=== PATIENT | female | born 1945 | race Caucasian/White ===

== ENCOUNTER 2018-05-05 05:34 | Day surgery (SDC) | payer OTHER ==
[~2018-05-05] VITALS: Ht 154.9 cm; Wt 122.0 kg
--- NOTE | ~2018-05-05 | PATH ---
[facility] [place] [address] PATHOLOGY RPT PROCEDURE Name: TAURUS GONZALEZ Room #: [facility]..#: [id number] Admission: 05/05/18 Date of : 43 Discharge: 05/05/18 Report #: [id number] Path Case #: [id number] [facility] Accession Number: [id number] . 01 Material submitted: . PART A: LEFT MEDIAL CANTHUS LOWER LID-FS PART B: ADDITIONAL LATERAL MARGIN OF LEFT MEDIAL CANTHUUS/LOWER LID-FS PART C: ADDITIONAL INFERIOR MARGIN LEFT MEDIAL CANTHUS/LOWER LID-FS PART D: LEFT UPPER LID/BROW-FS . 02 Diagnosis: A. Skin, basal cell carcinoma left medial canthus lower lid, excision: - INVASIVE BASAL CELL CARCINOMA. - Deep margin free of malignancy. - TUMOR FOCALLY PRESENT AT INFERIOR / LATERAL MARGIN. - Superior and medial margins free of malignancy. . B. Skin, additional lateral margin of left medial canthus / lower lid, excision: - FOCAL BASAL CELL CARCINOMA PRESENT. . C. Skin, additional inferior margin left medial canthus / left lower lid, excision: - Negative for malignancy. . D. Skin, basal cell carcinoma left upper lid / brow, excision: - INVASIVE WELL-DIFFERENTIATED BASAL CELL CARCINOMA. - Margins of resection free of malignancy. - Perineural invasion present. - Deep margin less than 1 mm away from invasive carcinoma. . (IUV:mml; 05/06/18) [facility]/05/06/2018 . 02 Electronically signed: . Negrita Alvarado MD, Pathologist NPI- [id number] . 01 Gross description: . A. Specimen is received fresh from the OR labeled with the patient's name, and "basal cell carcinoma left medial canthus lower lid", consists of a triangular specimen oriented as superior, lateral, inferior and medial. The base of the triangular excision is the superior, lateral and inferior margin. The superior is assigned 12:00, the lateral is assigned 3:00, the inferior is assigned 6:00, and the medial is assigned 9:00. The specimen measures 2 cm at the base, 1.9 cm from inferior to medial, and 1.6 cm medial to superior. At this point, the specimen is serially [address] [address] PATHOLOGY RPT PROCEDURE Name: LISATAURUS RAE Room #: [facility].R.#: [id number] Admission: 05/05/18 Date of : 43 Discharge: 05/05/18 Report #: [id number] Path Case #: [id number] sectioned and entirely submitted for frozen section as FSA1; this is subsequently submitted for permanent sections as A1. . B. Specimen is received fresh from the OR labeled with the patient's name, and "additional lateral margin of lateral medial canthus/lower lid", consists of a tiny excision with a thin strip of skin measuring approximately 1 x 0.3 x 0.2 cm. The specimen is oriented as inferior and lateral. The inferior is tagged with blue ink and the lateral is tagged with black ink. The specimen is submitted en-face for frozen section as FSB1; this is subsequently submitted for permanent sections as B1. . C. Specimen is received fresh from the OR labeled with the patient's name, and "additional inferior margin of medial canthus/lower lid", consists of a thin strip of skin measuring 1.1 x 0.3 x 0.2 cm. The inferior is tagged with blue ink and the lateral is tagged with black ink. Specimen is submitted en-face for frozen section as FSC1, subsequently submitted for permanent sections as C1. . D. Specimen is received fresh from the OR labeled with the patient's name, and "basal cell carcinoma left upper lid/brow", consists of an ellipse of skin measuring 2.5 x 1.3 x 0.3 cm. There is a central ulcerated lesion measuring approximately 1 x 1 cm. The specimen is oriented by Dr. Chavez as lateral, inferior, medial and superior. These are assigned 12:00, 3:00, 6:00, and 9:00, respectively with the lateral margin being the 12:00 tip and the medial margin being the 6:00 tip. The 12:00 to 3:00 to 6:00 is inked black, the 6:00 to 9:00 is inked blue, and 9:00 to 12:00 is inked green. At this point, the specimen is serially sectioned and entirely submitted for frozen section as FSD1, subsequently submitted for permanent sections as D1. (IUV:aimee; 05/05/2018) . . FROZEN SECTION DIAGNOSES (Negrita Alvarado MD) . FSA1, left medial canthus lower lid, excision: - BASAL CELL CARCINOMA PRESENT AT INFERIOR/LATERAL MARGIN. . FSB1, additional lateral margin medial canthus, excision: - BASAL CELL CARCINOMA PRESENT AT INFERIOR MARGIN. . FSC1, additional inferior margin medial canthus, excision: - Negative for invasive carcinoma. . FSD1, left upper lid/brow, excision: - Margins negative for invasive carcinoma. . These findings are discussed with Dr. Harinder Chavez in OR-[address] [address] PATHOLOGY RPT PROCEDURE Name: TAURUS GONZALEZ Room #: [facility]#: [id number] Admission: 05/05/18 Date of : 43 Discharge: 05/05/18 Report #: [id number] Path Case #: [id number] [facility] [place] and a written report is placed in the patient's chart. (IUV:aimee; 05/05/2018) . Frozen sections performed at [facility], [address] [place] [address] , [place] [address]. /QMS . 02 Pathologist provided ICD-10: C44.1191, C44.1192 . 02 CPT . 773549, 011056, 228956, 401209, 288758, [id number], [id number], 144508 Specimen Comment: A courtesy copy of this report has been sent to Specimen Comment: [phone], . Specimen Comment: Report sent to / DR PEREZ Specimen Comment: A duplicate report has been generated due to demographic updates. Performed at: [address], [place], [place] [id number] MD Skip Benites MD Phone: [phone] Performed at: [address] [id number] MD Negrita Alvarado MD Phone: [phone]
--- NOTE | ~2018-05-05 | O ---
[facility] [address] [address] OPERATIVE REPORT Name: TAURUS GONZALEZ Room #: 150-3 [facility] M.R.#: [id number] Admission: 05/05/18 Attend Phys: Harinder Chavez MD Discharge: Date of : 43 Report #: [id number] THIS REPORT FOR: //name// CC: Jesús Hamlin DATE OF SERVICE: 05/05/2018 PREOPERATIVE DIAGNOSES: 1. Basal cell carcinoma of left medial canthus, left lower lid, medial left upper lid and glabella. 2. Basal cell carcinoma of left lateral upper lid, left brow and left infratemporal fossa. POSTOPERATIVE DIAGNOSES: 1. Basal cell carcinoma of left medial canthus, left lower lid, medial left upper lid and glabella. 2. Basal cell carcinoma of left lateral upper lid, left brow and left infratemporal fossa. PROCEDURES: 1. Excision of basal cell carcinoma of left medial canthus, left lower lid, medial left upper lid and glabella with frozen section, control of margins and myocutaneous flap repair defect. 2. Excision of basal cell carcinoma of lateral left upper lid, left brow and left infratemporal fossa with musculocutaneous flap repair of defect based on the temporalis muscle. SURGEON: Harinder Chavez MD. ANESTHESIA: MAC. COMPLICATIONS: None. INDICATIONS FOR SURGERY: This 72-year-old woman presents with two separate rapidly enlarging basal cell carcinomas that are biopsy proven. One is in her left medial canthal area that extends up on to the glabella in her medial left upper lid in addition to extending on to her left lower lid, cheek and nasojugal fold. She has a larger lesion that extends from the lateral aspect of the brow into the upper lid and into the infratemporal fossa. She presents for excision of both of these lesions with frozen section, control of margins and repair of the ensuing defect. Informed consent was obtained to include but not limited to the potential risk for loss of vision, bleeding, infection, failure to improve the problem, the potential need for further surgery or treatment, especially [address] [address] OPERATIVE REPORT Name: TAURUS GONZALEZ Room #: 150-3 [facility]..#: [id number] Admission: 05/05/18 Attend Phys: Harinder Chavez MD Discharge: Date of : 43 Report #: [id number] considering her immunocompromised status. DESCRIPTION OF PROCEDURE: The patient was taken to the operating room where 2% Xylocaine with epinephrine mixed with equal parts of 0.75% Marcaine with Wydase was administered transcutaneously to the medial left upper lid, the left lower lid, the left medial canthus, the glabella, the forehead, the lateral brow, the lateral left upper lid, the infratemporal fossa. Approximately 15 mL of anesthetic were administered at the beginning of the case and was supplemented as necessary throughout the case. Attention was first turned to the smaller lesion in the medial aspect of the canthus. The lesion was outlined with a fine tip skin marking pen. The incisions were then made with a 15 blade, excising the entire lesion and then what appeared to be 2-3 mm of normal appearing tissue. Relatively brisk bleeding ensued as the lesion was directly overlying the supratrochlear and infratrochlear neurovascular bundles. The specimen was oriented on a drawing for the pathologist while hemostasis was achieved. She snap froze that specimen and found that there was still tumor remaining inferolaterally. An additional inferolateral margin was taken and oriented for the pathologist. Hemostasis was re-achieved. She analyzed this tissue and found that unfortunately, the margin was still positive. An additional inferior medial section of tissue across the entire wound was taken and passed off the field for the waiting pathologist. Hemostasis was then re-achieved. The pathologist snap froze that tissue and found that the margins were finally clear. At this point in time, the defect was much larger than it had originally been anticipated. A flap based in her glabella that extended up into her central portion of her forehead was then outlined. The flap was incised and hemostasis achieved with diligent pinpoint monopolar cautery. The flap ended up being based on the supratrochlear neurovascular bundle on the opposite side. The flap was rotated into position and gently placed. The forehead was reapproximated with multiple interrupted buried 5-0 Vicryl sutures switched to the flap closer to its intended position on the left side of the face. The skin in that area was closed with interrupted 6-0 chromic sutures. The flap was thin somewhat at the termination and then secured into its bed in the left medial canthus and lower lid. Buried 5-0 and 6-0 Vicryl sutures were used deep and 6-0 chromic sutures superficially. This left a portion of the defect uncorrected inferolaterally. An additional relaxing incision was then made and a lower lid and cheek flap elevated and rotated into position to correct that final defect. Attention was then turned to the larger lesion in the lateral brow that extended out into the infratemporal fossa. It was outlined with a fine tip skin marking pen. The incisions were then made with a 15 blade and the specimen oriented on [address] [address] OPERATIVE REPORT Name: TAURUS GONZALEZ Room #: 150-3 [facility]#: [id number] Admission: 05/05/18 Attend Phys: Harinder Chavez MD Discharge: Date of : 43 Report #: [id number] a drawing for the waiting pathologist as hemostasis was achieved in the field. The pathologist snap froze this tissue and found that the margins were clear. A musculocutaneous flap was then developed laterally based on the temporalis muscle. Relaxing incisions made and the muscle split to allow the flap to be rotated into position. Hemostasis was re-achieved once more. The flap was then advanced and closed as it was rotated with multiple interrupted buried 5-0 and 6-0 Vicryl sutures deep. 6-0 chromic sutures and 6-0 plain gut sutures were used for the closure more superficially. The wounds were then cleaned and dressed with erythromycin ophthalmic ointment. The patient subsequently transported to the recovery area having tolerated the procedures well with no anesthetic or operative complications being noted. By: [id number] Harinder Chavez MD /nt
[~2018-05-05 05:34] MED LIST: ATORVASTATIN CA40 MG PO; CALCIUM 600 +1 EA14 PO; CLONIDINE HCL0.3 M3 PO; COREG25 MG PO; COUMADIN 5 MG TA5 M1 PO; FASLODEX250 MG/5 M IM; FEMARA2.5 MG PO; HUMALOG100 UNIT/1 SUBQ; HYDRALAZINE HC100 MG PO; IRBESARTAN300 MG PO; IRON325 PO; LANTUSSOLASTAR SUBQ; NORVASC5 MG PO; OMEPRAZOLE20 M2 PO; PROLIA60 MG/1 ML; REFRESH TEARS15 ML OP; SENOKOT8.6 MG PO; TRAMADOL 50 MG50 MG PO; VITAMIN B-122000 MCG PO; VITAMIN D250000 UNIT PO; VITAMIN D350000 UNIT PO
[2018-05-05 08:15] VITALS: BP 172/63
[2018-05-05 08:21] LABS: INR 1.2; PROTIME 12.2 Seconds (9.3-11.4)
[2018-05-05 08:29] LABS: CALCIUM 9.4 mg/dL (8.5-10.1); CREATININE 1.5 mg/dL (0.6-1.0); POTASSIUM 4.1 mmol/L (3.5-5.1)
== END 2018-05-05 10:45 | disposition home or self-care (01) ==
LOC: TBA 05:34 → OR 05:34
PROVIDERS: Anesthesiology
DX: C44.1191 Basal cell carcinoma of skin of left upper eyelid, including canthus (principal); C44.1192 Basal cell carcinoma of skin of left lower eyelid, including canthus; I10 Essential (primary) hypertension; E11.9 Type 2 diabetes mellitus without complications; E78.5 Hyperlipidemia, unspecified; K21.9 Gastro-esophageal reflux disease without esophagitis; F32.9 Major depressive disorder, single episode, unspecified; Z79.4 Long term (current) use of insulin; Z79.899 Other long term (current) drug therapy; Z79.01 Long term (current) use of anticoagulants; Z88.8 Allergy status to other drugs, medicaments and biological substances; Z98.890 Other specified postprocedural states
CPT/HCPCS: 50010; 50101; 50386; 50398; 51636; 56528; 56531; 70005